=== PATIENT | female | born 1945 | race Caucasian/White ===

== ENCOUNTER 2024-02-22 12:10 | Emergency (ER) | payer OTHER, SELFPAY ==
[2024-02-22 12:16] VITALS: BP 185/71
--- NOTE | 2024-02-22 12:48 | ED.GENMED ---
History of Present Illness
<Carla Garner PA-C - Last Filed: 02/22/24 17:21>
General
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
Source: patient
Exam Limitations: none
Time Seen by Provider: 02/22/24 12:48
Nursing documentation reviewed up to this point in time: agreed with
History of Present Illness
History of Present Illness:
This is a 78 y/o female with a PMH of HTN, HLP, presenting to the emergency department today with concerns of a burning sensation all over her body. Patient states that she has had this for a few months now but it has gotten worse recently. Patient
states that she experiences a burning pins and needles sensation from the tip of her head, on her bilateral upper and lower extremities, across her abdomen, and her bilateral lower extremities. Patient states that she cannot wear too much clothes
because it will irritate her skin and she has to wear super light clothes. She also states that she cannot brush her hair because it bear too much. She has been eating less because when she eats, it makes the pain in her mouth worsen. She was seen
at [facility] and [facility] the past few days for the same complaints. She saw her primary care physician, Dr. Vale, today for these complaints. I personally spoke to Dr. Vale on the phone who was concerned because she presented to
the office today in a labile mood, and appeared to be disheveled and he was concerned about evaluation for mental status change, but also wanted her to be evaluated by a neurologist more urgently rather than wait till her appointment in July.
According to Dr. Vale, patient has been able to make appointments with neurologists in the past but has been known to cancel these appointments and not show up for them.
Review of Systems
<Carla Garner PA-C - Last Filed: 02/22/24 17:21>
Review of Systems
All Other Systems: ROS reviewed and negative except as documented in HPI and ROS
Phy Exam
<Carla Garner PA-C - Last Filed: 02/22/24 17:21>
Physical Exam
Physical Exam:
General: Patient is well appearing and in no acute distress; non-toxic
Skin: Warm and dry, no rashes or lesions
Head: Normocephalic, atraumatic
Eyes: Sclera non-icteric. EOMs intact. PERRLA.
Mouth: Dentition intact. No intraoral lesions. No pharyngeal edema.
Cardiac: Regular rate and rhythm, no murmurs.
Peripheral Vascular: No lower extremity swelling or edema.
Pulm: Normal respiratory effort, no wheezes, rales, or rhonchi
Musculoskeletal: 5/5 strength in bilateral upper and lower extremities
Neuro: CN II-XII intact, no focal neurologic deficits. Normal finger to nose, heel to byers testing. Sensation intact to light touch.
Psychiatric: Appropriate mood and affect.
Course
<Hope Serenity Garner PA-C - Last Filed: 02/22/24 17:21>
Orders/Labs/Results
Orders:
Orders
02/22/24 12:31
Urinalysis Reflex To Culture Urgent
Date Specimen was Collected: 02/22/24
Time Specimen was Collected: 12:30
Urine Drug Abuse Screen Urgent
Date Specimen was Collected: 02/22/24
Time Specimen was Collected: 12:30
Urine Microscopic Reflex Cult Urgent
02/22/24 13:35
Alcohol Urgent
B12 [Vitamin B12] Urgent
Complete Blood Count/With Diff Urgent
Comprehensive Metabolic Panel Urgent
Erythrocyte Sed Rate Urgent
Comment: ADD ON
Ferritin Urgent
Comment: DD ON
Folate Urgent
Comment: ADD ON
Free T4 Urgent
Glycohemoglobin (HgbA1c) Urgent
Magnesium Urgent
Syphilis/T. pallidum Ab Reflex Urgent
Comment: ADD ON
TSH Reflex To Free T4 Urgent
02/22/24 14:17
Alcohol Urgent
02/22/24 14:20
Add On- LAB Routine
Comments:: Please add to today's labs or draw as routine
Tests Added?: Ferritin, Folate, ESR
02/22/24 14:21
Add On- LAB Routine
Comments:: Please add to today's labs or draw as routine
Tests Added?: RPR
02/22/24 14:35
Add On- LAB Urgent
Tests Added?: TSH, B12
02/22/24 14:36
Add On- LAB Urgent
Tests Added?: urine drug screen
02/22/24 14:43
Add On- LAB Routine
Tests Added?: hbA1c
02/22/24 14:52
Add On- LAB Routine
Comments:: Please add to today's labs or draw as routine
Tests Added?: heavy metals, cryoglobulins, UPEP, SPEP
02/22/24 15:23
Add On- LAB Urgent
Tests Added?: Alcohol level
Abnormal Lab Results
02/22/24 02/22/24
12:31 13:35
MCH 26.7 L pg
(27.0-31.0)
MCHC 32.1 L g/dL
(33.0-37.0)
Absolute Lymphs (auto) 0.9 L 10^3/uL
(1.2-3.4)
Neutrophils % 78.3 H %
(42.2-75.2)
Lymphocytes % 12.8 L %
(20.5-51.1)
ESR 26 H mm/hour
(0-20)
TSH (Reflex) 0.32 L uIU/ml
(0.47-4.68)
Urine Ketones 1+ A
(Negative)
Ur Occult Blood Reflex 3+ A
(Negative)
Urine Bilirubin 1+ A
(Negative)
Leukocyte Esterase Rfl Trace A
(Negative)
Urine RBC 7-10 A /HPF
(0-2)
Urine Bacteria (Reflex) Few A
(Negative)
Urine Albumin (Reflex) 2+ A
(Neg - Trace)
02/22/24 13:35
02/22/24 13:35
Vital Signs
Initial and Last Documented VS:
Initial Vital Signs
Temp Pulse Resp BP Pulse Ox
98 F 74 18 185/71 95
02/22/24 12:16 02/22/24 12:16 02/22/24 12:16 02/22/24 12:16 02/22/24 12:16
Last Documented Vital Signs
Temp Pulse Resp BP Pulse Ox
98 F 94 18 126/82 99
02/22/24 12:16 02/22/24 15:48 02/22/24 12:16 02/22/24 15:48 02/22/24 15:48
<Erick Colón, DO - Last Filed: 02/22/24 14:38>
Orders/Labs/Results
Orders:
Orders
02/22/24 12:31
Urinalysis Reflex To Culture Urgent
Date Specimen was Collected: 02/22/24
Time Specimen was Collected: 12:30
Urine Drug Abuse Screen Urgent
Date Specimen was Collected: 02/22/24
Time Specimen was Collected: 12:30
Urine Microscopic Reflex Cult Urgent
02/22/24 13:35
Alcohol Urgent
B12 [Vitamin B12] Urgent
Complete Blood Count/With Diff Urgent
Comprehensive Metabolic Panel Urgent
Erythrocyte Sed Rate Urgent
Comment: ADD ON
Ferritin Urgent
Comment: DD ON
Folate Urgent
Comment: ADD ON
Free T4 Urgent
Glycohemoglobin (HgbA1c) Urgent
Magnesium Urgent
Syphilis/T. pallidum Ab Reflex Urgent
Comment: ADD ON
TSH Reflex To Free T4 Urgent
02/22/24 14:17
Alcohol Urgent
02/22/24 14:20
Add On- LAB Routine
Comments:: Please add to today's labs or draw as routine
Tests Added?: Ferritin, Folate, ESR
02/22/24 14:21
Add On- LAB Routine
Comments:: Please add to today's labs or draw as routine
Tests Added?: RPR
02/22/24 14:35
Add On- LAB Urgent
Tests Added?: TSH, B12
02/22/24 14:36
Add On- LAB Urgent
Tests Added?: urine drug screen
02/22/24 14:43
Add On- LAB Routine
Tests Added?: hbA1c
02/22/24 14:52
Add On- LAB Routine
Comments:: Please add to today's labs or draw as routine
Tests Added?: heavy metals, cryoglobulins, UPEP, SPEP
02/22/24 15:23
Add On- LAB Urgent
Tests Added?: Alcohol level
Abnormal Lab Results
02/22/24 02/22/24
12:31 13:35
MCH 26.7 L pg
(27.0-31.0)
MCHC 32.1 L g/dL
(33.0-37.0)
Absolute Lymphs (auto) 0.9 L 10^3/uL
(1.2-3.4)
Neutrophils % 78.3 H %
(42.2-75.2)
Lymphocytes % 12.8 L %
(20.5-51.1)
ESR 26 H mm/hour
(0-20)
TSH (Reflex) 0.32 L uIU/ml
(0.47-4.68)
Urine Ketones 1+ A
(Negative)
Ur Occult Blood Reflex 3+ A
(Negative)
Urine Bilirubin 1+ A
(Negative)
Leukocyte Esterase Rfl Trace A
(Negative)
Urine RBC 7-10 A /HPF
(0-2)
Urine Bacteria (Reflex) Few A
(Negative)
Urine Albumin (Reflex) 2+ A
(Neg - Trace)
02/22/24 13:35
02/22/24 13:35
Vital Signs
Initial and Last Documented VS:
Initial Vital Signs
Temp Pulse Resp BP Pulse Ox
98 F 74 18 185/71 95
02/22/24 12:16 02/22/24 12:16 02/22/24 12:16 02/22/24 12:16 02/22/24 12:16
Last Documented Vital Signs
Temp Pulse Resp BP Pulse Ox
98 F 94 18 126/82 99
02/22/24 12:16 02/22/24 15:48 02/22/24 12:16 02/22/24 15:48 02/22/24 15:48
Randelllt;Carla Garner PA-C - Last Filed: 02/22/24 17:21>
MDM/Problems Addressed
Differential Diagnosis Includes:
ddx include electrolyte derangement, GBS, MS, urinary tract infection, oral candidiasis, STI/STD, mucositis
MDM/Problems Addressed:
Burning sensation, paresthesias:
This is a 78 y/o female with a PMH of HTN, HLP, presenting to the emergency department today with concerns of a burning sensation all over her body. Patient states that she has had this for a few months now but it has gotten worse recently. Patient
states that she experiences a burning pins and needles sensation from the tip of her head, on her bilateral upper and lower extremities, across her abdomen, and her bilateral lower extremities. Patient has been having this for months, was advised
to have neurologic follow-up by her PCP, she made multiple appointments for this and would cancel them or not show up for them. She presents today because her symptoms became a lot worse recently, she was also seen in 2 other emergency departments
past 2 days. But was never evaluated by neurologist. Today, she was evaluated by our neurologist Dr. Dinero said that the differential diagnosis is very broad with this and may include a mild toxicities as well as paraneoplastic abnormalities. He
did recommend to initiate pregabalin 50 mg 3 times daily and check blood work for potential metabolic abnormalities. There is no clear indication for neurologic imaging at this time. Patient in agreement with this plan, patient will follow-up with
Dr. Foster outpatient. Patient stable for discharge.
Chronic conditions affecting care:
HTN, HLP
Acute Exacerbation and/or Progression of Chronic Illness:
HTN, HLP
<Carla Garner PA-C - Last Filed: 02/22/24 17:21>
*Pulse Oximetry
Patient hypoxic: no
*Critical Care Note
Total Time (30-74mins, 75-104mins- exclusive of procedures): Not Applicable
Data Reviewed
Review of Other/Old Records Reveals: Records (no previous ER records in [facility] to review) and Discharge Summary (no discharge summary in [facility] to review )
Source: patient and records
<Carla Garner PA-C - Last Filed: 02/22/24 17:21>
Patient Management
Discussion with other providers: Fur Floor Worker (neurology )
Escalation/DeEscalation of care consider admission/obs:
Reviewed case with my attending Dr. Colón. Reviewed case with neurologist concrete pouring supervisor Dr. Dinero. Patient will need further outpatient workup for better classification of her illness but no indication for admission or neurologic imaging at this
time. Patient stable for discharge.
ED Attending Note
<Carla Garner PA-C - Last Filed: 02/22/24 17:21>
-
Portions of this chart may have been created with voice recognition software.� Occasional wrong word or��sound alike� substitutions may have occurred due to the inherent limitations of voice recognition software.
<Erick Caraballo Katarzyna, DO - Last Filed: 02/22/24 14:38>
ED Attending Note
Patient seen and examined by attending physician: Yes
I performed the substantive portion of visit, reviewed & personally made and approve the management plan that is documented in note by myself or OPAL.: Yes
I performed a history and physical exam of patient and discussed management with resident, I reviewed resident's note and agree with documented findings and plan of care.: Yes
ED Attending Note:
I evaluated the patient at bedside. The patient has diffuse paresthesias/burning sensation. PMD sent him here for neurologic evaluation. CBC, chemistries unremarkable. She does not have sensory deficits on examination.
Discharge Plan
Departure
Patient Disposition: Home (Routine Discharge)
Date of Disposition: 02/22/24
Time of Disposition: 15:44
Patient with high blood pressure during this ER visit?: Yes
Condition: Good
Discharge Problem:
Paresthesias, Alteration in sensory perception
Prescriptions:
New
pregabalin 50 mg capsule
50 mg PO TID Qty: 30 0RF
Referrals:
Mario Dinero MD [Active] - Call in 1-3 days for appt
NONE,* [Family Provider] -
Activity Restrictions/Additional Instructions:
Please begin taking one pregabalin tablet 3 times daily.
Please return to the emergency department should you experience chest pain, shortness of breath, fevers or chills, abdominal pain, or any other concerning signs or symptoms.
Please follow up with Dr. Dinero and your primary care provider.
Interventions
Interventions:
*Risk Screen - Suicide Last Done: 02/22/24 12:19
*General Assessment Last Done: 02/22/24 12:19
*Neglect/Abuse Screening Last Done: 02/22/24 12:19
ED- Fall Risk Assessment Last Done: 02/22/24 13:40
*Nursing Disposition Last Done: 02/22/24 16:31
ED-Female Genitourinary Assessment Last Done: 02/22/24 13:39
Discharge Date and Time
Discharge Date/Time: 02/22/24 16:32
Print Language: WELSH
[2024-02-22 12:51] LABS: Urine Albumin 2+ (Neg - Trace); Urine Bilirubin 1+ (Negative); Urine Character Clear (Clear); Urine Color Yellow; Urine Glucose Negative (Negative); Urine Ketone 1+ (Negative); Urine Leukocyte Trace (Negative); Urine Nitrite Negative (Negative); Urine Occult Blood 3+ (Negative); Urine Urobilinogen Negative (Neg - 1+)
[2024-02-22 13:19] LABS: Urine Mucus Few
[2024-02-22 13:20] LABS: Urine Bacteria Few (Negative)
[2024-02-22 13:53] LABS: % Basophils 0.6 % (0-2); % Eosinophils 0.6 % (0-6); % Immature Granulocytes 0.4 % (0-0.5); % Lymphocytes 12.8 % (20.5-51.1); % Monocytes 7.3 % (1.7-9.3); % Neutrophils 78.3 % (42.2-75.2); Absolute Lymphocytes 0.9 10^3/uL (1.2-3.4); Absolute Monocytes 0.5 10^3/uL (0.1-0.6); Absolute Neutrophils 5.5 10^3/uL (1.4-6.5); Hematocrit 40.8 % (37.0-47.0); Hemoglobin 13.1 g/dL (12.0-16.0); Mean Corp Hgb Conc. 32.1 g/dL (33.0-37.0); Mean Corpuscular Hgb 26.7 pg (27.0-31.0); Mean Corpuscular Volume 83.3 fL (81.0-99.0); Mean Platelet Volume 9.2 fL (7.4-10.4); Nucleated Red Blood Cells % 0 %; Platelet Count 266 10^3/uL (130-400); Red Cell Dist. Width 13.6 % (11.5-14.5)
[2024-02-22 14:10] LABS: ALT (SGPT) < 10 U/L (0-35); AST (SGOT) 22 U/L (14-36); Albumin 4.5 g/dl (3.5-5.0); Alkaline Phosphatase 89 U/L (38-126); Blood Urea Nitrogen 17 mg/dl (7-17); Calcium 9.9 mg/dl (8.4-10.2); Carbon Dioxide 28 mmol/L (22-30); Chloride 102 mmol/L (98-107); Glucose 94 mg/dl (70-99); Magnesium 2.1 mg/dl (1.6-2.3); Potassium 4.2 mmol/L (3.5-5.1); Sodium 141 mmol/L (135-145); Total Bilirubin 0.5 mg/dl (0.2-1.3); Total Protein 7.3 g/dl (6.3-8.2); eGFR > 60.00
--- NOTE | 2024-02-22 14:18 | CON.NEURO4 ---
Addendum entered and electronically signed by Mario Dinero MD 02/22/24 15:35:
Studies reviewed.
I have personally examined the patient. I reviewed and agree with the RETAIL TIRE SALES MANAGER's Note.
My addenda:
Awake, alert, interactive. No acute distress.
Speech intact.
Follows 2-step requests w/o difficulty. No tremor.
Extra-ocular movements grossly intact.
Facial movements full and symmetric. Hearing intact to normal conversational volume.
Normal UE movements bilaterally.
Neck: full ROM.
Chest: no dyspnea
Heart: no JVD
Ext: (-) Clubbing, (-) Cyanosis, (-) Edema
IMPRESSIONS/RECOMMENDATIONS:
Chronic onset of skin sensation change with gradual worsening over time
Differential diagnosis is broad and includes heavy metal toxicity as well as paraneoplastic abnormality as well as somatizations disorder
Initiate pregabalin 50 mg 3 times a day
Check blood work for potential metabolic abnormalities producing symptomatology
No clear indication for additional neuroimaging at this time
Will need prior records from prior emergency department visits at other hospitals
D/W patient / family
All questions answered.
Will continue to follow as outpatient.
Original Note:
Documented by User: Genna Downey NP 02/22/24 15:11
Consultation - Neurology 4
-
CONSULTING PHYSICIAN: Mario Dinero MD
REFERRING PHYSICIAN: JABIER/Carla Garner PA-C
DICTATED BY: PATTI Hazel
DATE/TIME OF REQUEST: 02/22/24
DATE/TIME OF CONSULTATION: 02/22/24
Reason for Consultation: Burning sensation
History of Present Illness:
This is a 78-year-old right-handed female who has presented to the hospital with report of a diffuse body burning sensation. Patient reports that for the past couple of years she has had an intermittent tongue burning sensation. Over the past few
months the tongue burning sensation became more constant, and over the past few weeks has now spread to the top of her head down to the bottoms of her feet. The sensation is worse in her tongue and labia. Overall, it is worse from the umbilicus
upward compared to the lower body. Eating/drinking and tight-fitting clothing make the sensation in her mouth worse. She rates the discomfort a 10/10. Her taste is reduced but smell is intact. She also endorses generalized weakness. She has taken
Tylenol and is using saline eye drops with no relief of her symptoms. She denies any headache, dizziness, vision changes, speech/swallow difficulty, changes in bowel/bladder, weight changes, nausea, chest pain, palpitations, and shortness of breath.
Past Medical History: HTN, HLD
Surgical History: Cardiac catheterization, cardiac stents x3, appendectomy, mass removed from right arm, cholecystectomy, pelvic hernia repair
Family History: Reviewed and noncontributory.
Social History: Denies tobacco, alcohol, and illicit drug use.
Allergies: See below.
Home Medications: See below.
Review of Symptoms:
Patient denies any fever, headache, chest pain, shortness of breath, GI or symptoms.
�Per the HPI.�All systems are reviewed negative except above.
Physical Exam:
The patient is afebrile, abdomen is nondistended, breathing is unlabored, skin is warm and dry, no edema.
Neurologic Examination:
The patient is awake, alert and oriented x 3. She is able to follow commands and answer questions appropriately. There is no aphasia or dysarthria. On cranial nerve assessment, pupils are 3 mm bilateral, round and reactive to light and
accommodation. Visual giang are full. Extraocular movements are intact. Facial sensations are intact and bilaterally symmetrical, there is no facial asymmetry. Hearing is diminished bilaterally to normal conversation volume. Tongue palate and uvula
are midline, no fissures noted. Sternocleidomastoid strengths are full bilaterally. Motor strengths are 5/5 bilateral upper and lower extremities on medical research [place] scale. There is no drift or involuntary movement noted. Deep tendon
reflexes are 1+ bilateral upper and lower extremities and Babinski is absent bilaterally. Sensations of touch, temperature and vibration are intact and bilaterally symmetrical. There was no extinction noted on double simultaneous stimulation.
Coordination is intact by finger to nose bilaterally. Positive Romberg.
Lab Results: See below.
Neuro Imaging: None.
Differentials for the patient's presentation include:
1. Possibly a metabolic disturbance producing patient's symptoms.
2. Lower concern for paraneoplastic syndrome given years of symptoms.
3. Psychological source of symptoms possible but less likely.
Patient has the following risk factors for their symptoms: None.
Recommendations:
-Initiate pregabalin 50mg TID.
-Checking blood work extensively, see orders.
-Do not see a role for further Neurological imaging at this point.
-Patient can follow-up with Neurology as an outpatient with Dr. Dinero.
Discussed patient care with: Dr. Dinero, the patient
Vital Signs and Labs
-
Vital Signs and Labs:
Vital Signs
Temp Pulse Resp BP Pulse Ox
98 F 74 18 185/71 95
02/22/24 12:16 02/22/24 12:16 02/22/24 12:16 02/22/24 12:16 02/22/24 12:16
Lab Results
02/22/24 13:35
02/22/24 13:35
Sodium 141 mmol/L (135-145) 02/22/24 13:35
Potassium 4.2 mmol/L (3.5-5.1) 02/22/24 13:35
BUN 17 mg/dl (7-17) 02/22/24 13:35
Glucose 94 mg/dl (70-99) 02/22/24 13:35
Calcium 9.9 mg/dl (8.4-10.2) 02/22/24 13:35

Documented by User: Mario Dniero MD 02/22/24 15:33
Consultation - Neurology 4
-
CONSULTING PHYSICIAN: Mario Dinero MD
REFERRING PHYSICIAN: ER/Carla Garner PA-C
DICTATED BY: PATTI Hazel
DATE/TIME OF REQUEST: 02/22/24
DATE/TIME OF CONSULTATION: 02/22/24
Reason for Consultation: Burning sensation
History of Present Illness:
This is a 78-year-old right-handed female who has presented to the hospital with report of a diffuse body burning sensation. Patient reports that for the past couple of years she has had an intermittent tongue burning sensation. Over the past few
months the tongue burning sensation became more constant, and over the past few weeks has now spread to the top of her head down to the bottoms of her feet. The sensation is worse in her tongue and labia. Overall, it is worse from the umbilicus
upward compared to the lower body. Eating/drinking and tight-fitting clothing make the sensation in her mouth worse. She rates the discomfort a 10/10. Her taste is reduced but smell is intact. She also endorses generalized weakness. She has taken
Tylenol and is using saline eye drops with no relief of her symptoms. She denies any headache, dizziness, vision changes, speech/swallow difficulty, changes in bowel/bladder, weight changes, nausea, chest pain, palpitations, and shortness of breath.
Past Medical History: HTN, HLD
Surgical History: Cardiac catheterization, cardiac stents x3, appendectomy, mass removed from right arm, cholecystectomy, pelvic hernia repair
Family History: Reviewed and noncontributory.
Social History: Denies tobacco, alcohol, and illicit drug use.
Allergies: See below.
Home Medications: See below.
Review of Symptoms:
Patient denies any fever, headache, chest pain, shortness of breath, GI or symptoms.
�Per the HPI.�All systems are reviewed negative except above.
Physical Exam:
The patient is afebrile, abdomen is nondistended, breathing is unlabored, skin is warm and dry, no edema.
Neurologic Examination:
The patient is awake, alert and oriented x 3. She is able to follow commands and answer questions appropriately. There is no aphasia or dysarthria. On cranial nerve assessment, pupils are 3 mm bilateral, round and reactive to light and
accommodation. Visual giang are full. Extraocular movements are intact. Facial sensations are intact and bilaterally symmetrical, there is no facial asymmetry. Hearing is diminished bilaterally to normal conversation volume. Tongue palate and uvula
are midline, no fissures noted. Sternocleidomastoid strengths are full bilaterally. Motor strengths are 5/5 bilateral upper and lower extremities on medical research [place] scale. There is no drift or involuntary movement noted. Deep tendon
reflexes are 1+ bilateral upper and lower extremities and Babinski is absent bilaterally. Sensations of touch, temperature and vibration are intact and bilaterally symmetrical. There was no extinction noted on double simultaneous stimulation.
Coordination is intact by finger to nose bilaterally. Positive Romberg.
Lab Results: See below.
Neuro Imaging: None.
Differentials for the patient's presentation include:
1. Possibly a metabolic disturbance producing patient's symptoms.
2. Lower concern for paraneoplastic syndrome given years of symptoms.
3. Psychological source of symptoms possible but less likely.
Patient has the following risk factors for their symptoms: None.
Recommendations:
-Initiate pregabalin 50mg TID.
-Checking blood work extensively, see orders.
-Do not see a role for further Neurological imaging at this point.
-Patient can follow-up with Neurology as an outpatient with Dr. Dniero.
Discussed patient care with: Dr. Dinero, the patient
[2024-02-22 15:16] VITALS: BP 161/64
[2024-02-22 15:27] LABS: Erythrocyte Sed Rate 26 mm/hour (0-20)
[2024-02-22 15:35] LABS: Amphetamines Negative (Negative); Barbiturates Negative (Negative); Benzodiazepines Negative (Negative); Buprenorphine Negative (Negative); Cocaine Negative (Negative); Marijuana Negative (Negative); Methadone Negative (Negative); Methamphetamines Negative (Negative); Opiates Negative (Negative); Phencyclidine Negative (Negative); Tricyclic Antidepressants Negative (Negative)
[2024-02-22 15:48] VITALS: BP 126/82
[2024-02-22 16:09] LABS: TSH Reflex To Free T4 0.32 uIU/ml (0.47-4.68)
[2024-02-22 16:40] LABS: Alcohol None Detected
[2024-02-22 16:45] LABS: Folate 6.3 ng/ml (2.76-20); Vitamin B12 280 pg/ml (239-931)
[2024-02-22 17:41] LABS: Free T4 1.53 ng/dl (0.78-2.19)
[2024-02-23 10:24] LABS: Glycohemoglobin (HgbA1c) 5.6 % (4.0-5.6)
[2024-02-24 12:55] LABS: Syphilis/T. pallidum Ab Reflex Negative (Negative)
== END 2024-02-22 16:32 | disposition home or self-care (01) ==
LOC: EMR 12:10
PROVIDERS: Emergency Medicine; Physician Assistant; EMERGENCY PHYSICIAN Emergency Medicine
DX: R20.2 Paresthesia of skin (principal); R20.8 Other disturbances of skin sensation; R45.86 Emotional lability; E78.5 Hyperlipidemia, unspecified; I10 Essential (primary) hypertension; Z95.5 Presence of coronary angioplasty implant and graft; Z90.49 Acquired absence of other specified parts of digestive tract; Z88.6 Allergy status to analgesic agent; Z88.5 Allergy status to narcotic agent; Z88.8 Allergy status to other drugs, medicaments and biological substances
CPT/HCPCS: 99283; 80053; 80306; 81003; 81015; 82077; 82607; 82728; 82746; 83036; 83735; 84439; 84443; 85025; 85652; 86780

== ENCOUNTER 2024-02-27 15:18 | Emergency (ER) | payer OTHER, SELFPAY ==
[2024-02-27 15:22] VITALS: BP 188/78
[2024-02-27 15:47] LABS: % Basophils 0.8 % (0-2); % Immature Granulocytes 0.3 % (0-0.5); % Neutrophils 75.9 % (42.2-75.2); Absolute Basophils 0.1 10^3/uL (0-0.2); Absolute Eosinophils 0.1 10^3/uL (0-0.7); Absolute Monocytes 0.4 10^3/uL (0.1-0.6); Absolute Neutrophils 4.7 10^3/uL (1.4-6.5); Hematocrit 38.6 % (37.0-47.0); Hemoglobin 12.7 g/dL (12.0-16.0); Mean Corp Hgb Conc. 32.9 g/dL (33.0-37.0); Mean Corpuscular Hgb 26.3 pg (27.0-31.0); Mean Corpuscular Volume 80.1 fL (81.0-99.0); Mean Platelet Volume 9.3 fL (7.4-10.4); Nucleated Red Blood Cells % 0 %; Platelet Count 256 10^3/uL (130-400); Red Blood Cell Count 4.82 10^6/uL (4.20-5.40); Red Cell Dist. Width 13.6 % (11.5-14.5); White Blood Cell Count 6.1 10^3/uL (4.8-10.8)
[2024-02-27 15:48] LABS: Urine Albumin 1+ (Neg - Trace); Urine Bilirubin 1+ (Negative); Urine Character Clear (Clear); Urine Color Yellow; Urine Glucose Negative (Negative); Urine Ketone Trace (Negative); Urine Leukocyte 1+ (Negative); Urine Nitrite Negative (Negative); Urine Occult Blood 3+ (Negative); Urine Specific Gravity 1.015 (<1.030); Urine Urobilinogen Negative (Neg - 1+)
[2024-02-27 15:56] LABS: Urine Bacteria Moderate (Negative)
[2024-02-27 16:03] LABS: ALT (SGPT) < 10 U/L (0-35); AST (SGOT) 21 U/L (14-36); Albumin 4.4 g/dl (3.5-5.0); Alkaline Phosphatase 94 U/L (38-126); Blood Urea Nitrogen 17 mg/dl (7-17); Calcium 9.7 mg/dl (8.4-10.2); Carbon Dioxide 26 mmol/L (22-30); Chloride 104 mmol/L (98-107); Glucose 101 mg/dl (70-99); Potassium 4.1 mmol/L (3.5-5.1); Sodium 140 mmol/L (135-145); Total Bilirubin 0.5 mg/dl (0.2-1.3); Total Protein 7.3 g/dl (6.3-8.2); eGFR > 60.00
[2024-02-27] MEDS: ATIVAN 0.5 MG PO (17:41)
--- NOTE | 2024-02-27 17:51 | ED.GENMED ---
Addendum entered and electronically signed by Julius Wilhelm PA-C 03/02/24 09:39:
Patient has urine culture that grew greater than 100,000 CFU of Proteus Mirabilis. Based off of her record it did not appear she had any urinary symptoms. I contacted the patient and left a voicemail for her to contact us back to discuss and see
if patient would need antibiotics for any treatment
Original Note:
History of Present Illness
General
Chief Complaint: Generalized Pain
Source: patient
Exam Limitations: none
Time Seen by Provider: 02/27/24 17:01
Nursing documentation reviewed up to this point in time: agreed with
History of Present Illness
History of Present Illness:
Patient presents to ED secondary to worsening generalized pain over the past 2 months. Patient was evaluated in ED for same complaint recently. Patient was seen by neurologist, Dr. Dinero, who prescribed Lyrica. Patient stopped taking the
medication after couple doses secondary to side effect, i.e. upset stomach. Denies fever or chills. Denies headache. Denies dizziness. Denies loss of sensation or weakness. Denies loss of appetite.
Review of Systems
Review of Systems
Allergies reviewed?: Yes
All Other Systems: ROS reviewed and negative except as documented in HPI and ROS
Constitutional: Reports no symptoms
EENT: Reports no symptoms
Respiratory: Reports no symptoms
Cardiac: Reports no symptoms
ABD/GI: Reports no symptoms
Musculoskeletal: Reports no symptoms
Skin: Reports no symptoms
Neurological: Reports other (Generalized body ache)
Phy Exam
Physical Exam
Physical Exam:
Physical Exam
General: no apparent distress, not acutely ill. afebrile
Head: nc/at. eomi
Neck: supple. no meningeal signs.
Heart: s1/s2 regular rate and rhythm, no murmur. equal radial pulses.
Lungs: no acute respiratory distress. clear bilaterally
Abdomen: normal bowel sounds. not tender.
Neuro: alert and oriented. no focal neurological deficits
Skin: no rash
Psychiatric: well kept. interactive and cooperative
Extremities: no edema. no calf tenderness.
Course
Orders/Labs/Results
Orders:
Orders
02/27/24 15:36
Urinalysis Reflex To Culture Urgent
Date Specimen was Collected: 02/27/24
Time Specimen was Collected: 15:34
Urine Microscopic Reflex Cult Urgent
Urine Culture Urgent
[facility] Source: U
Specimen Description:
Date Specimen was Collected: 02/27/24
Time Specimen was Collected: 15:34
02/27/24 15:38
Complete Blood Count/With Diff Urgent
Comprehensive Metabolic Panel Urgent
02/27/24 17:23
Lorazepam [Ativan] 0.5 mg PO NOW STA
02/27/24 17:24
CT Head W/o Iv Contrast Urgent
Comment:
Reason For Exam: paresthesia
Abnormal Lab Results
02/27/24 02/27/24
15:36 15:38
MCV 80.1 L fL
(81.0-99.0)
MCH 26.3 L pg
(27.0-31.0)
MCHC 32.9 L g/dL
(33.0-37.0)
Absolute Lymphs (auto) 1.0 L 10^3/uL
(1.2-3.4)
Neutrophils % 75.9 H %
(42.2-75.2)
Lymphocytes % 16.0 L %
(20.5-51.1)
Glucose 101 H mg/dl
(70-99)
Urine Ketones Trace A
(Negative)
Ur Occult Blood Reflex 3+ A
(Negative)
Urine Bilirubin 1+ A
(Negative)
Leukocyte Esterase Rfl 1+ A
(Negative)
Urine RBC 3-6 A /HPF
(0-2)
Urine Bacteria (Reflex) Moderate A
(Negative)
Urine Albumin (Reflex) 1+ A
(Neg - Trace)
02/27/24 15:38
02/27/24 15:38
Vital Signs
Initial and Last Documented VS:
Initial Vital Signs
Temp Pulse Resp BP Pulse Ox
98.4 F 78 16 188/78 98
02/27/24 15:22 02/27/24 15:22 02/27/24 15:22 02/27/24 15:22 02/27/24 15:22
Last Documented Vital Signs
Temp Pulse Resp BP Pulse Ox
98.4 F 78 16 188/78 98
02/27/24 15:22 02/27/24 15:22 02/27/24 15:22 02/27/24 15:22 02/27/24 15:22
MDM/Problems Addressed
MDM/Problems Addressed:
CT head: NAD.
Discussed with oncall neurology, . Recommends starting patient on Cymbalta 30mg daily along with outpatient evaluation with , with whom she has an appt in 2 weeks.
*Critical Care Note
Total Time (30-74mins, 75-104mins- exclusive of procedures): Not Applicable
ED Attending Note
-
Portions of this chart may have been created with voice recognition software.� Occasional wrong word or��sound alike� substitutions may have occurred due to the inherent limitations of voice recognition software.
Discharge Plan
Departure
Patient Disposition: Home (Routine Discharge)
Date of Disposition: 02/27/24
Time of Disposition: 19:58
Patient with high blood pressure during this ER visit?: Yes
Discharge Problem:
Painful paresthesia
Instructions: Paresthesia (DC)
Prescriptions:
New
duloxetine [Cymbalta] 30 mg capsule,delayed release(DR/EC)
30 mg PO DAILY Qty: 30 0RF
No Action
pregabalin 50 mg capsule
50 mg PO TID Qty: 30 0RF
Referrals:
Dylan Vale MD [Family Provider] -
Mario Dinero MD [Active] -
Activity Restrictions/Additional Instructions:
As discussed, please follow-up with your neurologist for further evaluation and treatment. Your prescription has been sent electronically to [facility].
Interventions
Interventions:
*Risk Screen - Suicide Last Done: 02/27/24 18:13
*General Assessment Last Done: 02/27/24 18:13
*Neglect/Abuse Screening Last Done: 02/27/24 18:13
*ED COVID-19 Vaccine History Last Done: 02/27/24 18:13
*Nursing Disposition Last Done: 02/27/24 20:52
Discharge Date and Time
Discharge Date/Time: 02/27/24 20:52
Print Language: GREENLANDIC
== END 2024-02-27 20:52 | disposition home or self-care (01) ==
LOC: EMR 15:18
PROVIDERS: EMERGENCY PHYSICIAN Emergency Medicine; FAMILY PHYSICIAN Internal Medicine
DX: R52 Pain, unspecified (principal); R20.2 Paresthesia of skin
CPT/HCPCS: 99284; 70450; 80053; 81003; 81015; 85025; 87086; 87088; 87186